=== PATIENT | female | born 1980 | race Caucasian/White ===

== ENCOUNTER 2022-03-28 05:45 | Day surgery (SDC) | payer OTHER ==
[~2022-03-28] VITALS: Ht 170.2 cm; Wt 120.0 kg
[~2022-03-28 05:45] MED LIST: EXCEDRIN MIGRA1 EAC2 PO; NUVARING VAGIN1 EACH; TYLENOL325 MG PO
[2022-03-28] MEDS ORDERED: MIDOL CAPLET1 EAC1 PO (06:12)
[2022-03-28] MEDS ORDERED: IBUPROFEN800 MG PO (06:13)
--- NOTE | 2022-03-28 09:18 | NUR ---
03/28/22 0918 Wanda Palafox 0859 PT ARRIVED IN PACU NON RESPONSIVE TO NOXIOUS STIMULI WITH OPA IN PLACE. CHIN LIFT HELD BY RN. 0910 AT BEDSIDE. NO CHANGE IN PT STATUS. CHONG WITH NEON YELLOW URINE PRESENT.
--- NOTE | 2022-03-28 09:53 | NUR ---
PT ARRIVES TO DS TREATMENT ROOM FROM PACU WITH EYES CLOSED, RESP EVEN AND UNLABORED. PT DROWSY AND SLURS WORDS WHEN CONVERSING. PT STATES, "I FEEL LIKE I CAN'T OPEN MY EYES." PT DENIES NAUSEA AND RATES PAIN 5/10 WHEN ASKED. PT FAMILY AT BEDSIDE, CALL LIGHT WITHIN REACH. PT TAKES SMALL SIPS OF WATER AND LIGHTS DIMMED. PT ENCOURAGED TO REST.
--- NOTE | 2022-03-28 11:23 | NUR ---
1050: PT RESTING IN BED AWAKE CONVERSING WITH FAMILY AT BEDSIDE. PT RATES PAIN 7/10 IN LOWER ABD AND IS OFFERED PAIN RX. PT HESITANT ABOUT TAKING "MORE MEDS BECAUSE MY HEAD FEELS REALLY WEIRD." PT UNABLE TO DESCRIBE FEELING IN HEAD WHEN ASKED BUT DENIES DIZZINESS, LIGHTHEADEDNESS, NAUSEA OR PAIN. PT ALSO DENIES DC OF CHONG, WOULD LIKE HEAD TO "FEEL BETTER FIRST." PT EDUCATED ABOUT ANESTHESIA, ANTIEMETICS AND PAIN RX. PT ULTIMATELY DECIDES TO TRY ONE TABLET OF PERCOCET AT THIS TIME, SEE EMAR. ICED WATER REFILLED AND SECOND APPLESAUCE PROVIDED. FAMILY AT BEDSIDE PROVIDED WATER AND JUICE AND WARM BLANKETS. CALL LIGHT WITHIN REACH. 1120: PT UMBILICUS DRESSING SATURATED AND REINFORCED WITH GAUZE AND PAPER TAPE, NEW BLANKETS PROVIDED. PT WILL LET RN KNOW WHEN SHE WOULD LIKE CHONG CATHETER REMOVED, WHEN SHE FEELS ABLE TO TRANSFER TO COMMODE/AMBULATE TO ATTACHED BATHROOM. CALL LIGHT REMAINS WITHIN REACH.
--- NOTE | 2022-03-28 11:45 | NUR ---
[id number]: PT USES CALL LIGHT TO NOTIFY RN THAT SHE WOULD LIKE CHONG REMOVED. CHONG EMPTIED OF 425 ML BRIGHT YELLOW URINE. CHONG BALLOON EMPTIED OF APPROX 10 MLS CLEAR FLUID AND CATHETER EASILY REMOVED WITH LITTLE RESISTANCE. PT TOLERATES WELL. [id number]: PT HAS URGE TO VOID AND WOULD LIKE TO TRY. PT SITS AT SIDE OF BED AND DANGLES LEGS PRIOR TO STANDING, DENIES DIZZINESS OR NAUSEA WITH POSITION CHANGE. PT AMBULATES WITH STEADY GAIT AND RN ASSIST TO ATTACHED BATHROOM, ABLE TO VOID APPOX 200 MLS YELLOW URINE WITH NO BLOOD NOTED. PT PROVIDED ELIS PAD AND MESH PANTIES FOR LONG RIDE HOME. PT BACK TO STRETCHER AND PROVIDED WARM BLANKETS, CALL LIGHT WITHIN REACH.
--- NOTE | 2022-03-28 14:59 | NUR ---
[id number]: PT STATES PAIN IS "MUCH BETTER" AND RATES PAIN 3/10. PT STATES, "MY HEAD DEFINITELY FEELS BETTER BUT I STILL JUST FEEL A LITTLE WOOZY." THIS RN SUGGESTS REMOVING SCOPOLAMINE PATCH BEHIND RIGHT EAR TO SEE IF THAT IS THE SOURCE. DC CRITERIA MET AT THIS TIME AND PT DESIRES TO DISCHARGE HOME. PT DRESSES SELF AND IV REMOVED WNL. DC INSTRUCTIONS PRESENTED VERBALLY AND WRITTEN, PT VERBALIZES AN UNDERSTANDING. PT DC FROM DS TREATMENT ROOM VIA WC TO AUNT WAITING AT MAIN HOSPITAL ENTRANCE TO HOME.
--- NOTE | 2022-03-29 12:53 | OR ---
[facility] [address] [place], [place] [address] Signed DATE OF OPERATION: 03/28/2022 SURGEON: Nena Lozano MD PREOPERATIVE DIAGNOSIS: Dysmenorrhea, history of endometriosis. POSTOPERATIVE DIAGNOSIS: Dysmenorrhea, history of endometriosis. PROCEDURES: Total laparoscopic hysterectomy, bilateral salpingectomy, fulguration of endometriosis, cystoscopy. ANESTHESIA: General ET. ESTIMATED BLOOD LOSS: 50 mL. DRAINS: Gunderson catheter. INDICATIONS AND FINDINGS: The patient is a 41-year-old female 1, para 1, who has a history of endometriosis and has been having worsening pelvic pain and dysmenorrhea. At this point, she desires definitive treatment. At the time of surgery, exam under anesthesia was normal. At the time of laparoscopy, the pelvis appeared normal except for a small spot of endometriosis on the left pelvic sidewall. DESCRIPTION OF PROCEDURE: The patient was prepped and draped in the dorsal lithotomy position. A weighted speculum was placed and the anterior lip of the cervix was visualized and grasped with a single-tooth tenaculum. The endocervical canal was then dilated and the uterus sounded to 7 cm. The VCare cannula was placed and the balloon inflated at the fundus. The tenaculum and speculum were removed. The cup was fitted over the cervix followed by the locking cap. Attention was directed above. The infraumbilical area was injected with 0.5% Marcaine plain. An incision was made with a knife and each layer serially elevated and incised until the fascia was opened and identified. Stay sutures were placed of 0 Vicryl. The peritoneum was opened bluntly. The Rosario cannula was placed and tied into Electronically Signed By: NENA LOZANO MD 03/29/22 1253 PATIENT NAME: NIDIA CAO OPERATIVE REPORT DATE OF : 80 REPORT #: [id number] PHYSICIAN: NENA LOZANO MD PCP: NO PRIMARY CARE PHYSICIAN REPORT IS CONFIDENTIAL AND NOT TO BE RELEASED WITHOUT AUTHORIZATION [facility] [address] [place], [place] [address] Placement of the scope confirmed proper positioning. CO2 was then introduced into the abdomen under low pressures. Inspection of the pelvis showed the planned procedure was appropriate. Secondary ports were then placed. These were placed laterally and slightly below the level of the umbilicus. Each of these areas was transilluminated, injected with the Marcaine, incision made with a knife and the trocars placed under direct vision. The left-sided port was a 5 mm port and the right side was the Veress needle followed by the expanding port. Following this, the LigaSure [place] device was used and the patient's left tube was grasped and the mesosalpinx was serially coagulated and divided from the fimbriated end to the cornua. The specimen was divided there and retrieved. Following this, the patient's utero-ovarian ligament was serially coagulated and divided. This was followed by the round ligament. Following this, the anterior leaf of the peritoneum could be incised allowing for creation of a partial bladder flap. The peritoneum was taken down posteriorly as well. The uterine vessels were then skeletonized and coagulated multiple times and eventually divided. There was some back bleeding as well and this was cauterized as well in an effort to control this. Following this, attention was directed to the patient's right side. The tube was removed in a similar manner. The patient's right utero-ovarian and round ligament were serially coagulated and divided. The anterior leaf of the peritoneum was then incised completing the bladder flap. The peritoneum was taken posteriorly as well, completing that dissection as well. The uterine vessels were then skeletonized and coagulated multiple times and divided. Further dissection was done both posteriorly and anteriorly and the cup could be palpated and seen. At this point, the specimen was removed using the Sonicision device. The excision was begun at the patient's right uterosacral ligament and wrapped around on the left and anteriorly. It was completed by beginning posteriorly and wrapping around on the right completing the separation. The specimen was then retrieved intact vaginally. A glove with a wet lap tape was then placed allowing the pneumoperitoneum to reaccumulate. The abdomen was the irrigated and tape was then placed allowing the pneumoperitoneum to reaccumulate. The abdomen was inspected and bleeding points on the bladder flap area near the patient's left side was controlled with monopolar cautery. The cuff was then closed from the right uterosacral ligament to the left and back to the center using the Endostitch. Care was taken to incorporate the vaginal mucosa both posteriorly and anteriorly. Again, the abdomen was irrigated and inspected. There was no evidence of any ongoing bleeding. The single point of endometriosis was then cauterized with monopolar cautery as this was on the left pelvic sidewall above the ovarian area. Following this, the instruments were removed from the abdomen after allowing as much CO2 as possible to escape. The fascial incision of the umbilicus was reidentified and closed with a running suture of 0 Vicryl. The skin incisions were closed with subcuticular sutures of 3-0 Vicryl Rapide. The patient then received IV fluorescein. The Gunderson catheter was removed and the cystoscope was placed. Evaluation of the bladder showed no evidence of any injury. There was prompt spill of fluorescein stained urine from each of the ureters. Following this, the bladder was drained and the Gunderson catheter replaced. All sponge and needle counts were Electronically Signed By: NENA LOZANO MD 03/29/22 1253 PATIENT NAME: NIDIA CAO OPERATIVE REPORT DATE OF : 80 REPORT #: [id number] PHYSICIAN: NENA LOZANO MD PCP: NO PRIMARY CARE PHYSICIAN REPORT IS CONFIDENTIAL AND NOT TO BE RELEASED WITHOUT AUTHORIZATION [address] [address] Signed correct. She tolerated the procedure well and was taken to the recovery room in good condition. Nena Lozano MD PJW/MODL /[id number] cc: Fish Judge MD [facility] Copies: FISH JUDGE MD ~ Electronically Signed By: NENA LOZANO MD 03/29/22 1253 PATIENT NAME: NIDIA CAO OPERATIVE REPORT DATE OF : 80 REPORT #: [id number] PHYSICIAN: NENA LOZANO MD PCP: NO PRIMARY CARE PHYSICIAN REPORT IS CONFIDENTIAL AND NOT TO BE RELEASED WITHOUT AUTHORIZATION
--- NOTE | 2022-03-29 14:44 | PATH ---
[facility] [address] [place], [place] [address] Signed SPECIMEN(S): A UTERUS, CERVIX AND FALLOPIAN TUBES SPECIMEN SOURCE: A. UTERUS, CERVIX AND FALLOPIAN TUBES CLINICAL HISTORY: Dysmenorrhea, dyspareunia, probable endometriosis. FINAL PATHOLOGIC DIAGNOSIS: Uterus, cervix, and bilateral fallopian tubes, hysterectomy and bilateral salpingectomy: - Cervix: Focal hemangioma. - Endometrium: Weakly proliferative endometrium, benign endometrial polyp. - Myometrium: Leiomyoma. - Fallopian tubes: Two fallopian tubes with no histopathologic abnormality. - No evidence of malignancy. NAL:cml:C2NR MICROSCOPIC EXAMINATION: Histologic sections of all submitted blocks are examined by light microscopy. These findings, together with the gross examination, support the pathologic diagnosis. GROSS DESCRIPTION: The specimen, labeled "RG, A," and designated on the requisition "bilateral fallopian tubes, uterus, cervix," is received in formalin and consists of a uterus (trimmed weight: 138 grams, 7.2 cm superior to inferior, 6.6 cm point to cornu, 4.8 cm anterior to posterior), attached cervix (3.07 cm in length by 2.9 cm in diameter) with pink-watters smooth cervical mucosa and patent circular os (0.6 cm in diameter), and two detached and undesignated fimbriated fallopian tube segments (5.5 cm in length and ranging in diameter from 0.5 to 1.0 cm, and 5.0 cm in length and ranging in diameter from 0.8 to 1.1 cm). One fallopian tube segment is arbitrarily inked blue. Both fallopian tube segments are brown-watters and are sectioned to reveal a grossly unremarkable cut surface. The fimbriae are entirely submitted. The uterine serosa is pink-watters and smooth. The cervix is sectioned to reveal a pink-watters wrinkled endocervix (endocervical canal: 2.5 x 1.1 cm) with multiple mucoid material filled cysts within the PATIENT NAME: NIDIA CAO PATHOLOGY DATE OF : 80 REPORT #: [id number] PHYSICIAN: MARIYA PATHOLOGY PCP: NO PRIMARY CARE PHYSICIAN REPORT IS CONFIDENTIAL AND NOT TO BE RELEASED WITHOUT AUTHORIZATION [facility] [address] [place], [place] [address] Signed wall of the cervix that measure up to 0.7 cm in greatest dimension. Sectioning of the uterus reveals an endometrial cavity (5.3 cm superior to inferior by 3.7 cm cornu to cornu) with hemorrhagic endometrial lining that measures up to 0.1 cm in thickness. There is a red-pink endometrial polyp within the posterior aspect of the endometrial cavity. The polyp measures 2.7 x 1.0 x 0.5 cm. It is bisected to reveal a red-pink cut surface. The polyp is submitted entirely. The myometrium is pink-watters and trabeculated with one subserosal white-watters whorled nodule (1.2 cm in greatest dimension) in the superior aspect of the uterus. Ladle Liner sections are submitted as follows: (A1-A2) fallopian tubes (A3) cervix (A4) endomyometrium (A5) endometrial polyp, entirely (A6) myometrial nodule AC (under the direct supervision of a pathologist) The Gross Description was prepared using a voice recognition system. The report was reviewed for accuracy; however, sound-alike word errors, addition and/or deletions may occur. If there is any question about this report, please contact Client Services. PERFORMING LABORATORY: The technical component was performed by [facility], [address] [place] [id number] (CLIA# [id number]). Professional interpretation was performed by [facility], [facility], [address] [place] [id number] (CLIA# [id number]). Diagnostician: Helga Rueda MD Pathologist Electronically Signed 03/29/2022 Copies: ~ PATIENT NAME: NIDIA CAO PATHOLOGY DATE OF : 80 REPORT #: [id number] PHYSICIAN: MARIYA PATHOLOGY PCP: NO PRIMARY CARE PHYSICIAN REPORT IS CONFIDENTIAL AND NOT TO BE RELEASED WITHOUT AUTHORIZATION
== END 2022-03-28 13:10 | disposition home or self-care (01) ==
LOC: DS 05:45
PROVIDERS: ATTEND Obstetrics & Gynecology
PROC: 0UT74ZZ Resection of Bilateral Fallopian Tubes, Percutaneous Endoscopic Approach (ICD-10-PCS; 2022-03-28)
PROC: 0U594ZZ Destruction of Uterus, Percutaneous Endoscopic Approach (ICD-10-PCS; principal; 2022-03-28 07:30)
PROC: 0UT94ZZ Resection of Uterus, Percutaneous Endoscopic Approach (ICD-10-PCS; 2022-03-28 07:30)
DX: D25.2 Subserosal leiomyoma of uterus (principal); N80.3 Endometriosis of pelvic peritoneum; N94.5 Secondary dysmenorrhea; N84.0 Polyp of corpus uteri; D18.09 Hemangioma of other sites; E66.01 Morbid (severe) obesity due to excess calories; F41.8 Other specified anxiety disorders; N94.12 Deep dyspareunia; Z68.41 Body mass index [BMI] 40.0-44.9, adult; K21.9 Gastro-esophageal reflux disease without esophagitis; G43.009 Migraine without aura, not intractable, without status migrainosus; Z20.822 Contact with and (suspected) exposure to COVID-19
CPT/HCPCS: C9803; J0330; J0461; J0690; J1100; J1644; J1790; J1885; J2250; J2405; J2704; J2765; J3010; J7121; U0003